=== PATIENT | female | born 1955 | race Caucasian/White ===

== ENCOUNTER 2024-08-22 06:10 | Inpatient (IN) | payer MEDICARE, OTHER ==
[~2024-08-22] VITALS: Ht 160 cm; Wt 84.4 kg
[2024-08-22] MEDS ORDERED: ANESTHESIA TRAY IN PYXIS 1 EA TRAY MC ONE (07:18)
[2024-08-22] MEDS ORDERED: dexaMETHasone SOD PHOSPHATE 2 ML ONE (07:18)
[2024-08-22] MEDS ORDERED: LIDOCAINE 2%-EPI 1:100,000 30 ML VIAL ONE (07:18)
[2024-08-22] MEDS ORDERED: FENTANYL PF 250MCG/5ML AMPUL ONE (07:19)
[2024-08-22] MEDS ORDERED: VANCOMYCIN 1 GM VIAL ONE (07:19)
[2024-08-22] MEDS ORDERED: ROCURONIUM BROMIDE 50 MG/5 ML ONE (07:20)
[2024-08-22] MEDS ORDERED: LABETALOL 20 MG/4 ML VIAL ONE (07:38)
[2024-08-22] MEDS ORDERED: TRANEXAMIC ACID 1,000 MG/10 ML VIAL ONE (08:11)
[2024-08-22] MEDS ORDERED: METO25TA4 PO (13:18)
[2024-08-22] MEDS ORDERED: MAGN400T30 PO (13:18)
[2024-08-22] MEDS ORDERED: TRAM50TA2 PO (13:18)
[2024-08-22] MEDS ORDERED: SIMV-46 PO (13:18)
[2024-08-22] MEDS ORDERED: ASPI-1169 PO (13:18)
[2024-08-22] MEDS ORDERED: LOSA1TAB36 PO (13:18)
[2024-08-22] MEDS ORDERED: AMOX1TAB16 MT (13:18)
[2024-08-22] MEDS ORDERED: ACETAMINOPHEN 325 MG TABLET PO PRN (13:30)
[2024-08-22] MEDS ORDERED: ONDANSETRON HCL/PF 4 MG/2 ML VIAL IVP PRN ×2 (13:30→18:30)
[2024-08-22] MEDS: HYDROMORPHONE 1 MG/1 ML DISP.SYRIN IV PRN (15:19)
[2024-08-22 16:00] VITALS: BP 127/64; TEMP 97.9; O2SAT 99
[2024-08-22] MEDS: IV NS 0.9% 1,000 ML IV PRN (17:58)
[2024-08-22] MEDS: VANCOMYCIN 1 GM in IV D5W 250ml IV SCH (18:00)
[2024-08-22] MEDS ORDERED: MAG HYDROX/AL HYDROX/SIMETH 30 ML UDC PO PRN (18:30)
[2024-08-22 20:00] VITALS: BP 122/65; TEMP 97.7; O2SAT 96
[2024-08-22 20:59] VITALS: BP 122/65; TEMP 97.7; O2SAT 96
[2024-08-23 08:00] VITALS: BP_SYST 104; BP_DIAS 55; BP_DIAS 78; TEMP 98.6; O2SAT 96
[2024-08-23] MEDS: SIMVASTATIN 20 MG TABLET PO SCH (08:35)
[2024-08-23] MEDS: LOSARTAN/HCTZ 50-12.5MG/ 1 EA TABLET PO SCH (08:37)
[2024-08-23] MEDS: METOPROLOL SUCCINATE 25 MG TAB.SR.24H PO SCH (08:37)
[2024-08-23 12:00] VITALS: BP 120/65; TEMP 98.6; O2SAT 96
[2024-08-23] MEDS ORDERED: MAGNESIUM OXIDE 400 MG TABLET PO SCH (18:00)
== END 2024-08-23 15:35 | disposition home or self-care (01) | DRG 497 ==
LOC: DS 06:10 → MED 11:32
PROC: 0NUV07Z Supplement Left Mandible with Autologous Tissue Substitute, Open Approach (ICD-10-PCS; 2024-08-22)
PROC: 0NUR07Z Supplement Maxilla with Autologous Tissue Substitute, Open Approach (ICD-10-PCS; 2024-08-22)
PROC: 0NUT07Z Supplement Right Mandible with Autologous Tissue Substitute, Open Approach (ICD-10-PCS; 2024-08-22)
PROC: 0NSV04Z Reposition Left Mandible with Internal Fixation Device, Open Approach (ICD-10-PCS; 2024-08-22)
PROC: 0NSR04Z Reposition Maxilla with Internal Fixation Device, Open Approach (ICD-10-PCS; 2024-08-22)
PROC: 0NST04Z Reposition Right Mandible with Internal Fixation Device, Open Approach (ICD-10-PCS; 2024-08-22)
PROC: 0NBV0ZX Excision of Left Mandible, Open Approach, Diagnostic (ICD-10-PCS; 2024-08-22)
PROC: 0NBT0ZX Excision of Right Mandible, Open Approach, Diagnostic (ICD-10-PCS; 2024-08-22)
PROC: 0N5R0ZZ Destruction of Maxilla, Open Approach (ICD-10-PCS; principal; 2024-08-22 07:30)
DX: S02.40DK Maxillary fracture, left side, subsequent encounter for fracture with nonunion (principal); S02.40CK Maxillary fracture, right side, subsequent encounter for fracture with nonunion; S02.609K Fracture of mandible, unspecified, subsequent encounter for fracture with nonunion; X58.XXXD Exposure to other specified factors, subsequent encounter; E78.5 Hyperlipidemia, unspecified; I10 Essential (primary) hypertension; M27.2 Inflammatory conditions of jaws; J32.9 Chronic sinusitis, unspecified; L13.9 Bullous disorder, unspecified; D16.5 Benign neoplasm of lower jaw bone
CPT/HCPCS: 71045-TC; 88300-TC; 88305-TC; 88311-TC; 88312-TC; A4223; A4338; C1713; G0378; J0461; J0690; J1100; J1171; J2704; J3010; J3370; J3490; J7030; J7060

== ENCOUNTER 2025-01-23 07:26 | Inpatient (IN) | payer MEDICARE, OTHER ==
[~2025-01-23] VITALS: Ht 157.5 cm; Wt 79.7 kg
[~2025-01-23 07:26] MED LIST: AMOX1TAB16 MT; ASPI-1169 PO; LOSA1TAB36 PO; MAGN400T30 PO; METO25TA4 PO; SIMV-46 PO; TRAM50TA2 PO
[2025-01-23] MEDS ORDERED: LIDOCAINE 2%-EPI 1:100,000 30 ML VIAL ONE (09:05)
[2025-01-23] MEDS ORDERED: dexaMETHasone SOD PHOSPHATE 2 ML ONE (09:06)
[2025-01-23] MEDS ORDERED: OXYMETAZOLINE HCL NASAL SPRAY 30 ML BOTTLE NS ONE (09:06)
[2025-01-23] MEDS ORDERED: VANCOMYCIN 1 GM VIAL ONE (09:06)
[2025-01-23] MEDS ORDERED: ATROPINE SULFATE 1 MG/10 ML DISP.SYRIN ONE (09:18)
[2025-01-23] MEDS ORDERED: ATROPINE SULFATE OPHTH SOLN 15 ML BOTTLE ONE (09:22)
[2025-01-23] MEDS ORDERED: ANESTHESIA TRAY IN PYXIS 1 EA TRAY MC ONE (09:23)
[2025-01-23 11:35] VITALS: BP 128/58; TEMP 98; O2SAT 97
[2025-01-23 12:00] VITALS: BP 108/48; TEMP 97.7; O2SAT 97
[2025-01-23] MEDS ORDERED: MAGNESIUM HYDROXIDE 30 ML UDC PO PRN (12:30)
[2025-01-23] MEDS ORDERED: HYDROCODONE/APAP 5/325MG TABLET PO PRN (12:30)
[2025-01-23] MEDS ORDERED: Z GUARD REMEDY 4 OZ OINT TP PRN (12:30)
[2025-01-23] MEDS ORDERED: ACETAMINOPHEN 325 MG TABLET PO PRN ×2 (12:30→13:30)
[2025-01-23] MEDS ORDERED: ONDANSETRON HCL/PF 4 MG/2 ML VIAL IVP PRN (12:30)
[2025-01-23] MEDS ORDERED: TRAMADOL HCL 50 MG TABLET PO PRN (12:30)
[2025-01-23] MEDS ORDERED: HYDROMORPHONE 1 MG/1 ML DISP.SYRIN IV PRN (13:30)
[2025-01-23] MEDS ORDERED: ONDANSETRON HCL/PF 4 MG/2 ML VIAL IV PRN (13:30)
[2025-01-23] MEDS: IV NS 0.9% 1,000 ML IV PRN (15:54)
[2025-01-23 16:00] VITALS: BP 113/53; TEMP 97.8; O2SAT 96
[2025-01-23] MEDS: MAGNESIUM OXIDE 400 MG TABLET PO SCH (18:10)
[2025-01-23 20:00] VITALS: BP 136/65; TEMP 97.9; O2SAT 94
[2025-01-23] MEDS: VANCOMYCIN 1 GM in IV D5W 250ml IV SCH (21:55)
[2025-01-23] MEDS: MAG HYDROX/AL HYDROX/SIMETH 30 ML UDC PO PRN (22:30)
[2025-01-24 06:35] LABS: PLATELET COUNT (AUTO) 259 K/uL (150-450); RED BLOOD CELL COUNT(AUTO) 4.47 MIL/uL (4.0-5.2); RED CELL DISTRIBUTION WIDTH 14.6 % (11.5-15.0); WHITE BLOOD COUNT (AUTO) 11.8 K/uL (4.3-11.0)
[2025-01-24 06:57] LABS: CALCIUM, SERUM 9.4 mg/dL (8.5-10.1); CREATININE 0.8 mg/dL (0.6-1.3); SODIUM SERUM 145.0 mmol/L (136-145); UREA NITROGEN, BLOOD 16.0 mg/dL (7-18)
[2025-01-24 08:00] VITALS: BP 140/63; TEMP 97.9; O2SAT 98
[2025-01-24] MEDS: SIMVASTATIN 20 MG TABLET PO SCH (08:22)
[2025-01-24] MEDS: LOSARTAN POTASSIUM 50 MG TABLET PO SCH (08:22)
[2025-01-24 08:23] VITALS: BP 140/63
[2025-01-24] MEDS: METOPROLOL SUCCINATE 25 MG TAB.SR.24H PO SCH (08:23)
[2025-01-24] MEDS: HYDROCHLOROTHIAZIDE 25 MG TABLET PO SCH (08:23)
[2025-01-24] MEDS: ASPIRIN 81 MG TAB.CHEW PO SCH (08:24)
== END 2025-01-24 15:27 | disposition home or self-care (01) | DRG 497 ==
LOC: DS 07:26 → MED 11:52
PROVIDERS: ADMIT Nurse Practitioner Acute Care; ATTEND Nurse Practitioner Acute Care
PROC: 0N5R0ZZ Destruction of Maxilla, Open Approach (ICD-10-PCS; 2025-01-23)
PROC: 0N5V0ZZ Destruction of Left Mandible, Open Approach (ICD-10-PCS; 2025-01-23)
PROC: 0N5T0ZZ Destruction of Right Mandible, Open Approach (ICD-10-PCS; 2025-01-23)
PROC: 0NPW04Z Removal of Internal Fixation Device from Facial Bone, Open Approach (ICD-10-PCS; principal; 2025-01-23 10:10)
DX: T84.69XA Infection and inflammatory reaction due to internal fixation device of other site, initial encounter (principal); Y83.8 Other surgical procedures as the cause of abnormal reaction of the patient, or of later complication, without mention of misadventure at the time of the procedure; Y92.009 Unspecified place in unspecified non-institutional (private) residence as the place of occurrence of the external cause; I10 Essential (primary) hypertension; E78.5 Hyperlipidemia, unspecified; Z68.32 Body mass index [BMI] 32.0-32.9, adult; E66.9 Obesity, unspecified; I25.10 Atherosclerotic heart disease of native coronary artery without angina pectoris; Z98.82 Breast implant status; Z79.899 Other long term (current) drug therapy; Z79.82 Long term (current) use of aspirin; Z86.79 Personal history of other diseases of the circulatory system; D16.5 Benign neoplasm of lower jaw bone; D16.4 Benign neoplasm of bones of skull and face; J32.0 Chronic maxillary sinusitis
CPT/HCPCS: 36415; 80048-TC; 85025-TC; 87081-TC; 88300-TC; 88305-TC; 88311-TC; A4223; A4338; G0378; J0330; J0360; J0461; J0690; J1100; J2704; J3373; J3490; J7030; J7060